=== PATIENT | male | born 1990 | race Caucasian/White ===

== ENCOUNTER → 2017-06-25 | Outpatient (CLI) | payer OTHER | LOC: BMCIMAGING 16:53 | PROVIDERS: ATTEND Family Medicine | DX: S43.101A Unspecified dislocation of right acromioclavicular joint, initial encounter (principal); Y93.23 Activity, snow (alpine) (downhill) skiing, snowboarding, sledding, tobogganing and snow tubing; V00.311A Fall from snowboard, initial encounter ==